=== PATIENT | female | born 1985 | race Two or more races ===

== ENCOUNTER 2024-03-26 15:45 | Emergency (ER) | payer MEDICAID, SELFPAY ==
[2024-03-26 15:48] VITALS: BP 108/73; PULSE 92; RESP 19; TEMP 36.9; O2SAT 100; BMI 27.9
--- NOTE | 2024-03-26 16:07 | PD.EDLOWEX ---
Lower Extremity Injury RME/HPI General Chief Complaint: Hip Injury/Pain Stated Complaint: RIGHT HIP TO KNEE PAIN, UNKNOWN CAUSE Time Seen by Provider: 03/26/24 15:57 Arrival date/time: 03/26/24 15:45 39-year-old female currently presents to the emergency department complaints of right hip pain and buttock pain radiating down her right leg. Patient reports no recent injury patient reports no abdominal pain nausea vomiting or contractions Limitations: no limitations Related Data Previous Rx's ?Medication ?Instructions ?Recorded ibuprofen 600 mg tablet 600 mg PO QID PRN pain #20 tabs 01/21/23 tramadol 50 mg tablet 50 mg PO Q6H PRN pain #14 tabs 01/21/23 hydrocodone 5 mg-acetaminophen 325 1 tab PO BID PRN pain #10 tabs 02/18/24 mg tablet hydrocodone 5 mg-acetaminophen 325 1 tab PO BID PRN pain #6 tabs 03/26/24 mg tablet Allergies Allergy/AdvReac Type Severity Reaction Status Date / Time No Known Allergies Allergy Verified 03/26/24 15:49 Review of Systems Review of Systems Systems Reviewed: All systems reviewed, normal except as documented Constitutional Constitutional: Reports system reviewed and no additional complaints, except as documented, Denies fever(s) and Denies headache(s) Eyes Eyes: Reports system reviewed and no additional complaints, except as documented and Denies blurry vision ENT Ears, Nose, Mouth, and Throat: Reports system reviewed and no additional complaints, except as documented, Denies headache(s), Denies nasal congestion and Denies nasal discharge Cardiovascular Cardiovascular: Reports system reviewed and no additional complaints, except as documented, Denies chest pain and Denies dyspnea Respiratory Respiratory: Reports system reviewed and no additional complaints, except as documented, Denies chest congestion, Denies cough and Denies dyspnea Gastrointestinal Gastrointestinal: Reports system reviewed and no additional complaints, except as documented and Denies abdominal pain Musculoskeletal Musculoskeletal: Reports system reviewed and no additional complaints, except as documented, Reports abnormal gait, Denies back pain, Denies joint swelling and Reports other (Pain right buttock) Integumentary/Breasts Skin/Breast: Reports system reviewed and no additional complaints, except as documented and Denies rash Neurologic Neurologic: Reports system reviewed and no additional complaints, except as documented, Reports as per HPI, Reports abnormal gait and Denies headache(s) Past Medical History Past Medical History NEUROLOGIC: Negative Neurological Disorders or Seizures CARDIAC: Negative Cardiac Disorders or Congestive Heart Failure RESPIRATORY: Negative Chronic Obstructive Pulmonary Disease (COPD) GASTROINTESTINAL: Negative Gastrointestinal Disorders GENITOURINARY: Negative Genitourinary Disorders or Renal Disease REPRODUCTIVE: Positive Previous Pregnancies MUSCULOSKELETAL: Positive Musculoskeletal Disorders ENDOCRINE: Negative Endocrine Disorders, Diabetes Mellitus Type 1 or Diabetes Mellitus Type 2 HEMATOLOGIC: Negative Blood Disorders OTHER HISTORY: Positive Chicken Pox; Negative Hospitalization, Autoimmune Disease, Blood Transfusions, Blood Transfusion Reaction, Anesthesia Reactions or Cancer Family History FAMILY HISTORY: Negative Family Psychiatric Problems, Family Respiratory Disorders, Family Cardiac Disorders, Family Gastrointestinal Problems, Family Cancer, Family Surgery or Family Anesthesia Reaction Social History SMOKING STATUS: Never smoker ED Exam General Limitations: Present no limitations General appearance: Present alert and in no apparent distress Head Head exam: Present atraumatic Eye Eye exam: Present normal appearance, PERRL and EOMI ENT ENT exam: Present normal exam, normal oropharynx and mucous membranes moist Neck Neck exam: Present normal inspection, full ROM and trachea midline Chest Chest inspection: Present normal inspection and symmetric chest wall rise Respiratory Respiratory exam: Present normal lung sounds bilaterally Cardiovascular Cardiovascular exam: Present regular rate, normal rhythm and normal heart sounds Abdominal Exam Abdominal exam: Present soft and normal bowel sounds; Absent distention, tenderness, guarding, rebound or rigidity Extremities Exam Extremities exam: Present normal inspection and full ROM Back Exam Back exam: Present normal inspection, full ROM, sciatic notch tenderness (R) and straight leg raise (R); Absent tenderness Neurological Exam Neurological exam: Present alert, oriented X3 and CN II-XII intact Psychiatric Psychiatric exam: Present normal affect and normal mood Skin Skin exam: Present warm, dry, intact and normal color Course Quality Measures none Orders Category Date Time Status HYDROcodone*/APAP 5/325 [Dickens 5/325] Med 03/26/24 16:04 Discontinued 1 tab PO X1 ONE Vital Signs Vital signs: Vital Signs Temperature 98.5 F 03/26/24 15:48 Pulse Rate 92 03/26/24 15:48 Respiratory Rate 19 03/26/24 15:48 Blood Pressure 108/73 03/26/24 15:48 Pulse Oximetry (%) 100 03/26/24 15:48 Oxygen Delivery Method Room Air 03/26/24 15:48 O2 saturation 100% room air within normal Extremity Injury, Lower MDM Narrative MDM Narrative:: 39-year-old female currently presents to the emergency department complaints of right hip pain and buttock pain radiating down her right leg. Patient reports no recent injury patient reports no abdominal pain nausea vomiting or contractions Patient has point tenderness right sciatic notch worse with movement I suspect patient has sciatica Patient reports he been taking Tylenol at home without success Patient given 1 Dickens here and given a short prescription of Dickens for the pain Explained to the patient she needs to follow-up with her MACHINE FINISHER soon as possible for worsening symptoms return immediately Patient data External records reviewed:: [facility] previous records Clinical information provided by:: patient Social determinants that could affect healthcare access:: none Patient has the following chronic illnesses:: None How is presenting disease/condition affected by chronic disease/condition?: no chronic disease Evaluation data The following diagnostics were reviewed and interpreted by me:: other (specify) (N/A) Lab and/or radiology exams considered but not ordered:: Consider not ordered Interpretation Summary: N/A Medications / Prescriptions Medications or Prescriptions considered but not ordered:: Given Medication administrations:: Medication Administration History Discontinued Medications Hydrocodone Bitart/Acetaminophen (Hydrocodone/Apap 5/325 Tablet) 1 tab PO X1 ONE Stop: 03/26/24 16:05 Last Admin: 03/26/24 16:25 Dose: 1 tab Documented By: ARF Given Consultations Consultation(s) initiated? (list below): No Diagnosis Extremity Injury, Lower Differential Diagnosis: other (Hip pain, buttock pain) Most likely diagnosis given after review of the tests above:: Sciatica Admission Indicated Admission indicated?: not indicated Admission Request Was there a request for admission?: No Disposition Plan Disposition Plan: Discharge Discharge Attestation Discharge Attestation: The patient and all family members were given an opportunity to ask questions and understood the discharge instructions. Discharge instructions specifically effects, indications for sooner follow up or return to the emergency department, and the expected course of current diagnosis. Patient condition: Stable Discharge Plan Plan Patient Disposition: HOME (Self Care) Disposition Comment: Stable Prescriptions/Referrals Prescriptions/Med Rec: New hydrocodone-acetaminophen 5-325 mg tablet 1 tab PO BID MDD 10 PRN (Reason: pain) Qty: 6 0RF No Action tramadol 50 mg tablet 50 mg PO Q6H PRN (Reason: pain) Qty: 14 0RF ibuprofen 600 mg tablet 600 mg PO QID PRN (Reason: pain) Qty: 20 0RF hydrocodone-acetaminophen 5-325 mg tablet 1 tab PO BID MDD 10 PRN (Reason: pain) Qty: 10 0RF Problem List Clinical Impression: Right sided sciatica Patient/Caregiver Discharge Instructions Education Materials: ED Sciatica Additional Instructions: Please follow up with your MACHINE FINISHER in the next 24-48hrs for any worsening symptoms return here immediately Print Language: Indonesian Stand Alone Forms: Cheryl Award Info., Work/School Release, Patient Portal Info Letter PA/LAST MODEL DEPARTMENT SUPERVISOR Supervising Physician PA/LAST MODEL DEPARTMENT SUPERVISOR Supervising Physician: Dr Stanley
[2024-03-26] MEDS: HYDROcodone/APAP 5/325 TABLET 1 TAB PO (16:25)
== END 2024-03-26 16:25 | disposition home or self-care (01) ==
LOC: SERX 16:25
PROVIDERS: Emergency Provider Emergency Medicine; PCP Nurse Practitioner Women's Health
DX: O99.891 Other specified diseases and conditions complicating pregnancy (principal); M54.31 Sciatica, right side
CPT/HCPCS: 99283; A9270

== ENCOUNTER 2024-04-23 10:37 | Outpatient (RCR) | payer MEDICAID, SELFPAY ==
--- NOTE | 2024-03-12 10:35 | XR_ITS ---
Examination: Biophysical profile, ultrasound Date and time of exam: March 12, 2024 1039 hours INDICATIONS: Advanced maternal age Technique: Multiple transabdominal sonographic images of the pelvis abdomen obtained. Attention is directed to the breathing movement, gross body movement, amniotic fluid volume and tone. Findings: Amniotic fluid index 13.8 cm Total biophysical profile is 8 of 8. breathing movement is 2. Gross body movement is 2. tone is 2. Qualitative amniotic fluid volume is 2 Impression: Biophysical profile is 8 of 8.
[2024-03-12 11:39] VITALS: BP 116/75; PULSE 78; RESP 16; TEMP 36.8
--- NOTE | 2024-03-19 10:17 | XR_ITS ---
Examination: Biophysical profile, ultrasound Date and time of exam: March 18, 2024 1034 hrs. Indications: Advanced maternal age, shingles Technique: Multiple transabdominal sonographic images of the pelvis abdomen obtained. Attention is directed to the breathing movement, gross body movement, amniotic fluid volume and tone. Findings: Amniotic fluid index 11 cm Total biophysical profile is 8 of 8. breathing movement is 2. Gross body movement is 2. tone is 2. Qualitative amniotic fluid volume is 2 Impression: Biophysical profile is 8 of 8.
[2024-03-19 11:22] VITALS: BP 127/72; PULSE 80; RESP 16; TEMP 36.6
--- NOTE | 2024-03-26 10:11 | XR_ITS ---
Examination: Biophysical profile, ultrasound Date and time of exam: March 26, 2024 1050 hours INDICATIONS: Advanced maternal age, history shingles Technique: Multiple transabdominal sonographic images of the pelvis abdomen obtained. Attention is directed to the breathing movement, gross body movement, amniotic fluid volume and tone. Findings: Amniotic fluid index 12.3 cm Total biophysical profile is 8 of 8. breathing movement is 2. Gross body movement is 2. tone is 2. Qualitative amniotic fluid volume is 2 Impression: Biophysical profile is 8 of 8.
[2024-03-26 11:07] VITALS: BP 109/74; PULSE 103; RESP 16; TEMP 36.4
--- NOTE | 2024-04-02 10:31 | XR_ITS ---
Examination: Biophysical profile, ultrasound Date and time of exam: April 02, 2024 1047 hours INDICATIONS: Advanced maternal age Technique: Multiple transabdominal sonographic images of the pelvis abdomen obtained. Attention is directed to the breathing movement, gross body movement, amniotic fluid volume and tone. Findings: Amniotic fluid index 10 cm Total biophysical profile is 8 of 8. breathing movement is 2. Gross body movement is 2. tone is 2. Qualitative amniotic fluid volume is 2 Impression: Biophysical profile is 8 of 8.
[2024-04-02 11:00] VITALS: BP 101/61; PULSE 82; RESP 16; TEMP 36.7
--- NOTE | 2024-04-09 10:55 | XR_ITS ---
Examination: Biophysical profile, ultrasound Date and time of exam: April 09, 2024 1119 hours INDICATIONS: Diagnosis advanced maternal age, shingles Technique: Multiple transabdominal sonographic images of the pelvis abdomen obtained. Attention is directed to the breathing movement, gross body movement, amniotic fluid volume and tone. Findings: Amniotic fluid index 12.1 cm Total biophysical profile is 8 of 8. breathing movement is 2. Gross body movement is 2. tone is 2. Qualitative amniotic fluid volume is 2 Impression: Biophysical profile is 8 of 8.
[2024-04-09 11:49] VITALS: BP 125/82; PULSE 79; RESP 16; TEMP 36.4
--- NOTE | 2024-04-16 11:46 | XR_ITS ---
Examination: Biophysical profile, ultrasound Date and time of exam: April 16, 2024 1151 hours INDICATIONS: Advanced maternal age, maternal shingles Technique: Multiple transabdominal sonographic images of the pelvis abdomen obtained. Attention is directed to the breathing movement, gross body movement, amniotic fluid volume and tone. Findings: Amniotic fluid index 13.6 cm Total biophysical profile is 8 of 8. breathing movement is 2. Gross body movement is 2. tone is 2. Qualitative amniotic fluid volume is 2 Impression: Biophysical profile is 8 of 8.
[2024-04-16 12:27] VITALS: BP 125/75; PULSE 76; RESP 18; TEMP 36.8
--- NOTE | 2024-04-23 10:50 | XR_ITS ---
Examination: Biophysical profile, ultrasound Date and time of exam: April 23, 2024 1103 hours INDICATIONS: Diagnosis advanced maternal age Technique: Multiple transabdominal sonographic images of the pelvis abdomen obtained. Attention is directed to the breathing movement, gross body movement, amniotic fluid volume and tone. Findings: Amniotic fluid index 12.3 cm Total biophysical profile is 8 of 8. breathing movement is 2. Gross body movement is 2. tone is 2. Qualitative amniotic fluid volume is 2 Impression: Biophysical profile is 8 of 8.
[2024-04-23 11:27] VITALS: BP 113/70; PULSE 82; RESP 16; TEMP 36.7
== END 2024-04-23 23:59 | disposition home or self-care (01) ==
LOC: S4S1 10:37
PROVIDERS: Referring Provider Nurse Practitioner Women's Health; Visit Provider Nurse Practitioner Women's Health
DX: O98.513 Other viral diseases complicating pregnancy, third trimester (principal); B02.9 Zoster without complications; O09.523 Supervision of elderly multigravida, third trimester; Z3A.38 38 weeks gestation of pregnancy
CPT/HCPCS: 59025; 76819

== ENCOUNTER 2024-04-28 07:37 | Inpatient (IN) | payer MEDICAID, SELFPAY ==
[2024-04-28] VITALS (18 sets, daily range): BP systolic 88–148; BP diastolic 50–93; PULSE 76–98; RESP 15–20; TEMP 36.5–37.1; O2SAT 96–100; BMI 30.5
--- NOTE | 2024-04-28 08:04 | PD.LDHP ---
Documentation for date of: 04/28/24 OB Labor/Induct. HPI History of Present Illness : 8 Para: 6 Term pregnancies: 6 pregnancies: 0 Living children: 6 History of Abortions: Spontaneous and Elective: 1 HONORIO: 05/06/24 Gestational Age (weeks): 38 Gestational Age (days): 6 History of present illness: 39-year-old -0-1-6 at 38 weeks 6 days, HONORIO 05/06/2024 presents to labor and delivery triage with contractions. On presentation she was noted to be grossly ruptured with fetus in the breech position. presentation was confirmed through bedside ultrasound by myself. Patient denies any chest pain or leakage of fluid or any other associated complaints. Review of Systems Review of Systems Systems Reviewed: All systems reviewed, normal except as documented Meds Home Medications and Allergies Home Medications ?Medication ?Instructions ?Recorded ?Confirmed ?Type vitamin-ferrous sulfate 1 tab PO QDAY 04/28/24 04/28/24 History 27 mg iron-folic acid 0.8 mg tablet Allergies Allergy/AdvReac Type Severity Reaction Status Date / Time No Known Allergies Allergy Verified 04/28/24 07:40 OB Exam Physical Exam Vital signs: Pulse BP 76 146/83 H 04/28/24 07:46 04/28/24 07:46 Constitutional Constitutional: no acute distress Routine HEENT Exam Head: Present normocephalic and atraumatic Eye: Present EOMI and PERRL ENT: Present mucous membranes moist Routine Neck Exam Neck: Present supple and trachea midline Routine Cardiovascular Exam Cardiovascular: Present RRR Routine Abdominal Exam Abdominal: Present soft and normoactive bowel sounds Detailed Labor and Delivery Exam Dilation (cm): 3 Effacement (%): 50 Cervix position: mid station: -3 Baseline heart rate: 140 monitor accelerations: 15x15 monitor decelerations: None Routine Extremities Exam Extremities: Present full ROM Routine Skin Exam Skin: Present intact, dry and warm Routine Neurological Exam Neurological: Present alert, oriented X3 and CN II-XII intact Routine Psychiatric Exam Psychiatric: Present normal affect and normal thought process OB Assessment & Plan Assessment and Plan (1) Active labor at term: Status: Acute (2) Breech presentation of fetus: Status: Acute Assessment and plan: Admit to inpatient status for primary low transverse and BTL IV access, CBC, type and screen, LR at 125, RPR, COVID-19 test GBS negative Ancef 2 g prior to surgery start Bay catheter to drainage SCDs for DVT prophylaxis Anesthesia to preop for spinal anesthesia Scheduled for surgery.
[2024-04-28] MEDS: FAMOTIDINE INJ 10 MG/ML VIAL 2 ML 20 MG IV (08:21)
[2024-04-28] MEDS: METOCLOPRAMIDE INJ 5 MG/ML VIAL 2 ML 10 MG IVP (08:21)
[2024-04-28] MEDS: ceFAZolin/D5W 2 GM IV 2 GM/100 ML BAG IV (08:21)
[2024-04-28 08:25] LABS: Basophils % (Auto) 1 % (0-2.5); Eosinophils # (Auto) 0.1 Thou/mm3 (0.0-0.5); Eosinophils % (Auto) 1 % (0-10); Hematocrit 36.7 % (36.0-46.0); Hemoglobin 11.7 g/dL (12.0-16.0); Immature Granulocytes % (Auto) 1 % (0-0); Immature Granulocytes Auto 0.08 Thou/mm3 (0.00-0.00); Lymphocytes # (Auto) 1.4 Thou/mm3 (1.0-4.8); Lymphocytes % (Auto) 16 % (10-50); Mean Corpuscular HGB Conc 31.9 g/dl (31.0-37.0); Mean Corpuscular Hemoglobin 26.4 pg (25.0-35.0); Mean Corpuscular Volume 83 fL (80-100); Monocytes # (Auto) 0.7 Thou/mm3 (0.0-0.8); Monocytes % (Auto) 8 % (0-12); Neutrophils # (Auto) 6.5 Thou/mm3 (1.8-7.7); Neutrophils % (Auto) 74 % (37-80); Nucleated Red Blood Cell # 0.03 Thou/mm3 (0.00-0.00); Nucleated Red Blood Cell % 0 /100 WBC (0); Platelet Count 243 Thou/mm3 (140-440); RDW Standard Deviation 44.9 fL (36.4-46.3); Red Blood Count 4.43 Miln/mm3 (4.00-5.20); White Blood Count 8.8 Thou/mm3 (3.6-11.0)
[2024-04-28] MEDS: TERBUTALINE SULF INJ 1 MG/ML VIAL 0.25 MG SC (08:25)
--- NOTE | 2024-04-28 08:50 | PC.NURSE ---
04/28/2024 @ 0838 HIVES NOTED ON PATIENTS FACE WITH RICK DESAI AND DINING ROOM HOSTRICK ADAM. PATIENT DENIES ALLERGIES TO MEDICATIONS AND ANTIBIOTICS. PATIENT DENIES SYMPTOMS. DR. BARKER NOTIFIED IN OR BY RICK DESAI. PER Toya POSSIBLE TERBUTALINE ALLERGY. PER RICK DESAI HIVES DISAPPEARED DURING SPINAL PROCEDURE BEFORE C/S.
--- NOTE | 2024-04-28 09:27 | ESOP_ITS ---
Operative Note - [employer] Procedure Date of procedure: 04/28/24 Procedure Performed: Primary low-transverse section Indication: 39-year-old G8, P6 at 38 weeks 6 days with ruptured membranes in active labor Breech presentation of fetus Anesthesia type: Spinal Procedure description: Informed consent was obtained and the patient was taken to the operating room. Identity was confirmed by double identifiers and she was placed on the operating table. Spinal anesthesia was administered and she was positioned in the supine position. The abdomen and perineum were prepped in the usual sterile fashion and a Bay catheter was placed to continuous drainage. Sterile drapes were applied. The incision site was tested for adequacy of anesthesia. A Pfannenstiel skin incision was made with a scalpel and carried to the subcutaneous fat up to the rectus fascia. The rectus fascia was incised on either side of the midline and the incisions were extended bilaterally. The fascia was gently dissected off the ventral surface of the rectus muscle both superiorly and inferiorly. The rectus bellies were gently in the midline and the peritoneum was identified and entered bluntly using the surgeon's finger. The peritoneal opening was now stretched to create an adequate opening for access to the uterus. Efrain O-ring retractor was placed for adequate visualization. The anterior surface of the uterus was palpated. The bladder reflection was identified and a Yanira Mays low transverse uterine incision was made in the lower uterine segment taking care to avoid the bladder. Uterine entry was accomplished bluntly and the opening was stretched to create adequate room. Membranes were already noted to be ruptured, the fetus was in double footling br eech presentation. Breech delivery was accomplished in the usual fashion. A double loop of nuchal cord was noted around the neck and reduced. The umbilical cord was now double clamped, divided and the infant was handed over to the waiting team. Cord gas samples were obtained and the placenta was delivered. The placenta was delivered by gentle traction on the umbilical cord. The interior of the uterus was now thoroughly cleaned of all blood and debris and membranes. The hysterotomy angles were grasped by a pair of Allis clamps and the hysterotomy was closed using 1 Monocryl suture in 2 layers. The first layer was used to approximate the muscle in a running locked fashion, the second layer was used to approximate the thickness of the myometrium and uterine serosa in an imbricated manner. Once the repair was completed the hysterotomy was inspected and noted to be adequately hemostatic. The hysterotomy was once again inspected and hemostasis was noted to be satisfa ctory. The Efrain retractor was now removed. The peritoneal edges were re approximated. The rectus muscles were re approximated. The rectus fascia was now repaired using 0 Vicryl suture in a running fashion. The subcutaneous layer was now copiously irrigated using warm normal saline. All bleeding points were cauterized using the Bovie. The subcutaneous fat was closed using 3-0 Vicryl. The skin was closed using 4-0 Monocryl in a subcuticular fashion. The skin was cleaned and a sterile dressing was applied. The patient was now undraped, the abdomen and back were thoroughly cleaned and she was not transferred to the recovery room in a stable and awake condition. The patient tolerated the entire procedure well. No complications were encountered. All instrument, sponge and lap counts were correct x2. Estimated blood loss (ml): 650 Complications: none Surgical staff Operation Date: 04/28/24 08:15 <No data on this case meets the specified criteria> Diagnosis Discharge Diagnosis (1) Breech presentation of fetus: Status: Acute (2) Active labor at term: Status: Acute (3) delivery delivered: Status: Acute Problem List Completed Was Problem List Reviewed/Reconciled?: Yes
--- NOTE | 2024-04-28 09:30 | OBDSUM_ITS ---
Data (Caceres) Data : 8 Para: 6 Term: 6 : 0 : 1 Delivery Data (Caceres) Labor Data ROM Date: 04/28/24 ROM Time: 05:30 Rupture Type: SROM Amniotic Fluid: Clear Delivery Data Labor Onset Stage 1 Date: 04/28/24 Labor Onset Stage 1 Time: 05:30 Labor Onset Stage 2 Date: 04/28/24 Labor Onset Stage 2 Time: 09:04 Delivery Date: 04/28/24 Delivery Time: 09:04 Placenta Delivery Date: 04/28/24 Placenta Delivery Time: 09:04 Delivered by: Luke Hernández Delivery nurse: Cindy Hawk Other staff at delivery: Secondary School Teacher Librarian Other staff at delivery: Nursery Nurse Other staff at delivery: Scrub Other staff at delivery: RT Other staff at delivery: Ramona Hayward Other staff at delivery: Jody Vega Delivery Method Delivery: Delivery Type: Primary Anesthesia Type Primary Anesthesia: Spinal Umbilical Cord Nuchal Cord: x2 [place] Data (Caceres) Data Gender: Female Weight Grams: 3240 1 Minute Total: 7 5 Minute Total: 9
[2024-04-28] MEDS: OXYTOCIN in NS 20 units 20 UNIT/1,000 ML BAG 125 UNIT IV ×2 (10:17→15:33)
[2024-04-28 10:37] LABS: Syphilis Nonreactive (Nonreactive)
[2024-04-28] MEDS: KETOROLAC INJ 30 MG/ML VIAL IVP ×2 (13:27→22:03)
[2024-04-28] MEDS: RINGERS LACTATED 1000 ML 1,000 ML 125 ML IV (23:47)
[2024-04-29] MEDS: HYDROcodone/APAP 5/325 TABLET 2 TAB PO (04:24)
[2024-04-29 04:50] VITALS: BP 137/78; PULSE 92; RESP 18; TEMP 37; O2SAT 97
[2024-04-29 06:27] LABS: Basophils % (Auto) 0 % (0-2.5); Eosinophils # (Auto) 0.1 Thou/mm3 (0.0-0.5); Eosinophils % (Auto) 1 % (0-10); Hematocrit 25.7 % (36.0-46.0); Immature Granulocytes % (Auto) 1 % (0-0); Immature Granulocytes Auto 0.07 Thou/mm3 (0.00-0.00); Lymphocytes % (Auto) 10 % (10-50); Mean Corpuscular HGB Conc 31.1 g/dl (31.0-37.0); Mean Corpuscular Hemoglobin 26.1 pg (25.0-35.0); Mean Corpuscular Volume 84 fL (80-100); Monocytes # (Auto) 0.8 Thou/mm3 (0.0-0.8); Monocytes % (Auto) 7 % (0-12); Neutrophils # (Auto) 8.7 Thou/mm3 (1.8-7.7); Neutrophils % (Auto) 82 % (37-80); Nucleated Red Blood Cell # 0.02 Thou/mm3 (0.00-0.00); Nucleated Red Blood Cell % 0 /100 WBC (0); Platelet Count 197 Thou/mm3 (140-440); RDW Standard Deviation 45.5 fL (36.4-46.3); Red Blood Count 3.07 Miln/mm3 (4.00-5.20); White Blood Count 10.6 Thou/mm3 (3.6-11.0)
[2024-04-29 08:18] VITALS: BP 127/79; PULSE 93; RESP 18; TEMP 37.1; O2SAT 98
[2024-04-29] MEDS: IBUPROFEN TAB 400 MG TABLET 800 MG PO ×2 (08:35→16:18)
[2024-04-29] MEDS: DOCUSATE SOD 100 MG CAPSULE PO (08:35)
--- NOTE | 2024-04-29 09:21 | ESPR_ITS ---
Subjective Subjective Interval history: Delivery type: Patient doing well this morning. No acute complaints. Ambulating, tolerating p.o. and voiding without difficulty. HTN/Pre-Eclampsia screen: No chest pain, shortness of breath, headache, visual changes, epigastric or right upper quadrant pain. Breast-feeding, lochia diminishing. Bowel: Flatus+ Exam Vital Signs Temp Pulse Resp BP Pulse Ox O2 Del Method 98.7 F 93 18 127/79 98 Room Air 04/29/24 08:18 04/29/24 08:18 04/29/24 08:18 04/29/24 08:18 04/29/24 08:18 04/29/24 08:18 Constitutional Constitutional: no acute distress Routine HEENT Exam Head: Present normocephalic and atraumatic Eye: Present EOMI and PERRL ENT: Present mucous membranes moist Routine Neck Exam Neck: Present supple and trachea midline Routine Respiratory Exam Respiratory: Present chest non-tender, lungs clear, normal breath sounds and no resp distress Routine Cardiovascular Exam Cardiovascular: Present RRR Routine Abdominal Exam Abdominal: Present soft and normoactive bowel sounds Routine Extremities Exam Extremities: Present full ROM Routine Skin Exam Skin: Present intact, dry and warm Routine Neurological Exam Neurological: Present alert, oriented X3 and CN II-XII intact Routine Psychiatric Exam Psychiatric: Present normal affect and normal thought process Objective Labs 04/29/24 04:55 Labs: Laboratory Results - last 24 hr 04/28/24 04/29/24 08:10 04:55 WBC 10.6 RBC 3.07 L Hgb 8.0 L D Hct 25.7 L D MCV 84 MCH 26.1 MCHC 31.1 RDW Std Deviation 45.5 Plt Count 197 D Neut % (Auto) 82 H Lymph % (Auto) 10 [place] % (Auto) 7 Eos % (Auto) 1 Baso % (Auto) 0 Neut # (Auto) 8.7 H Lymph # (Auto) 1.0 [place] # (Auto) 0.8 Eos # (Auto) 0.1 Baso # (Auto) 0.0 Immature Gran # (Auto) 0.07 H Absolute Nucleated RBC 0.02 H Immature Gran % 1 H Nucleated RBC % 0 Syphilis Serology Nonreactive Blood Type O Positive Antibody Screen NEGATIVE Crossmatch See Detail Blood Bank Wristband ID Yes Assessment & Plan Problem List (1) Breech presentation of fetus: Status: Acute (2) Active labor at term: Status: Acute (3) delivery delivered: Status: Acute Assessment and plan: 1. Continue routine /post-op care 2. Labs reviewed, cbc appropriate 3. Remove dressing/Bay 4. Encourage to ambulate, shower 5. Encourage PO intake, breast feeding Time Spent With Patient Time: Total time spent is greater than 50% in coordination of care (as documented) at patient's floor/unit and/or counseling patient:
[2024-04-29 12:33] LABS: Basophils % (Auto) 0 % (0-2.5); Eosinophils # (Auto) 0.1 Thou/mm3 (0.0-0.5); Eosinophils % (Auto) 1 % (0-10); Immature Granulocytes % (Auto) 1 % (0-0); Immature Granulocytes Auto 0.05 Thou/mm3 (0.00-0.00); Lymphocytes # (Auto) 1.1 Thou/mm3 (1.0-4.8); Lymphocytes % (Auto) 10 % (10-50); Mean Corpuscular HGB Conc 32.4 g/dl (31.0-37.0); Mean Corpuscular Hemoglobin 26.8 pg (25.0-35.0); Mean Corpuscular Volume 83 fL (80-100); Monocytes # (Auto) 0.7 Thou/mm3 (0.0-0.8); Monocytes % (Auto) 7 % (0-12); Neutrophils # (Auto) 8.4 Thou/mm3 (1.8-7.7); Neutrophils % (Auto) 82 % (37-80); Nucleated Red Blood Cell # 0.02 Thou/mm3 (0.00-0.00); Nucleated Red Blood Cell % 0 /100 WBC (0); Platelet Count 223 Thou/mm3 (140-440); Red Blood Count 3.02 Miln/mm3 (4.00-5.20); White Blood Count 10.3 Thou/mm3 (3.6-11.0)
[2024-04-29 12:43] LABS: Hemoglobin 8.1 g/dL (12.0-16.0)
[2024-04-29 16:18] VITALS: TEMP 36.9
[2024-04-29] MEDS: HYDROcodone/APAP 5/325 TABLET 1 TAB PO (16:21)
[2024-04-29 16:22] VITALS: BP 139/87; PULSE 92; RESP 18; TEMP 36.9; O2SAT 99
[2024-04-29 19:57] VITALS: BP 132/83; PULSE 84; RESP 18; TEMP 36.9; O2SAT 97
[2024-04-30 05:28] VITALS: BP 117/76; PULSE 86; RESP 15; TEMP 37.1; O2SAT 96
--- NOTE | 2024-04-30 06:14 | PD.LDPPPRG ---
Subjective Subjective Interval history: Delivery type: Patient doing well this morning. No acute complaints. Ambulating, tolerating p.o. and voiding without difficulty. HTN/Pre-Eclampsia screen: No chest pain, shortness of breath, headache, visual changes, epigastric or right upper quadrant pain. Breast-feeding, lochia diminishing. Bowel: Flatus+/ BM+ Exam Vital Signs Temp Pulse Resp BP Pulse Ox O2 Del Method 98.4 F 84 18 132/83 H 97 Room Air 04/29/24 19:57 04/29/24 19:57 04/29/24 19:57 04/29/24 19:57 04/29/24 19:57 04/29/24 19:57 Constitutional Constitutional: no acute distress Routine HEENT Exam Head: Present normocephalic and atraumatic Eye: Present EOMI and PERRL ENT: Present mucous membranes moist Routine Neck Exam Neck: Present supple and trachea midline Routine Respiratory Exam Respiratory: Present chest non-tender, lungs clear, normal breath sounds and no resp distress Routine Cardiovascular Exam Cardiovascular: Present RRR Routine Abdominal Exam Abdominal: Present soft and normoactive bowel sounds Routine Extremities Exam Extremities: Present full ROM Routine Skin Exam Skin: Present intact, dry and warm Routine Neurological Exam Neurological: Present alert, oriented X3 and CN II-XII intact Routine Psychiatric Exam Psychiatric: Present normal affect and normal thought process Objective Labs 04/29/24 11:32 Labs: Laboratory Results - last 24 hr 04/29/24 04/29/24 04:55 11:32 WBC 10.6 10.3 RBC 3.07 L 3.02 L Hgb 8.0 L D 8.1 L Hct 25.7 L D 25.0 L MCV 84 83 MCH 26.1 26.8 MCHC 31.1 32.4 RDW Std Deviation 45.5 45.0 Plt Count 197 D 223 Neut % (Auto) 82 H 82 H Lymph % (Auto) 10 10 Moffat % (Auto) 7 7 Eos % (Auto) 1 1 Baso % (Auto) 0 0 Neut # (Auto) 8.7 H 8.4 H Lymph # (Auto) 1.0 1.1 Moffat # (Auto) 0.8 0.7 Eos # (Auto) 0.1 0.1 Baso # (Auto) 0.0 0.0 Immature Gran # (Auto) 0.07 H 0.05 H Absolute Nucleated RBC 0.02 H 0.02 H Immature Gran % 1 H 1 H Nucleated RBC % 0 0 Assessment & Plan Problem List (1) Breech presentation of fetus: Status: Acute (2) Active labor at term: Status: Acute (3) delivery delivered: Status: Acute Assessment and plan: PPD/POD#2 1. Continue routine care 2. Transition to PO meds. 3. Encourage to ambulate/ breast-feed 4. Anticipate discharge home today. Time Spent With Patient Time: Total time spent is greater than 50% in coordination of care (as documented) at patient's floor/unit and/or counseling patient:
--- NOTE | 2024-04-30 06:14 | PD.LDDS ---
DS: Providers Provider Date of admission: 04/28/24 07:57 Primary care physician: Physician No Primary/Family Admitting Provider: Eunice Thakkar CNM Attending Provider on Admission: Luke Hernández MD Consults: 04/28/24 09:54 Referral Routine Comment: Attending Provider on DC: Luke Hernández MD Discharging Provider: Luke Hernández MD DS: Diagnosis Discharge Diagnosis (1) delivery delivered: Status: Acute (2) Breech presentation of fetus: Status: Acute Problem List Completed Was Problem List Reviewed/Reconciled?: Yes Summary/Hosp Course Brief History: 39-year-old -0-1-6 at 38 weeks 6 days, [place] 05/06/2024 presents to labor and delivery triage with contractions. On presentation she was noted to be grossly ruptured with fetus in the breech position. presentation was confirmed through bedside ultrasound by myself. Patient denies any chest pain or leakage of fluid or any other associated complaints. Peripartum Data Procedures: Procedures Operation Date: 04/28/24 08:15 Actual Procedure Side Surgeon p w/tubal OB Luke Hernández MD Time Spent with Patient Time attestation: Total time spent providing and/or coordinating discharge services: Exam Vital Signs Temp Pulse Resp BP Pulse Ox O2 Del Method 98.4 F 84 18 132/83 H 97 Room Air 04/29/24 19:57 04/29/24 19:57 04/29/24 19:57 04/29/24 19:57 04/29/24 19:57 04/29/24 19:57 Discharge Plan Plan Patient Disposition: HOME (Self Care) Patient condition on transfer: Stable Prescriptions/Referrals Prescriptions/Med Rec: New hydrocodone-acetaminophen 5-325 mg Tablet 1 tab PO Q6HR MDD 4 PRN (Reason: Patient rated pain 9 to 10) 5 Days Qty: 20 0RF docusate sodium 100 mg Capsule 100 mg PO QDAY 30 Days Qty: 30 0RF ibuprofen 400 mg Tablet 800 mg PO Q8HR PRN (Reason: Pain Scale 4-6 (Moderate) 10 Days Qty: 30 0RF Discontinued 27 mg iron- 0.8 mg Tablet 1 tab PO QDAY Referrals: Luke Hernández MD [Physician] - No Primary/Family,Physician [Primary Care Provider] - Patient/Caregiver Discharge Instructions Meds to Beds: Yes Discharge Activity: activity as tolerated Education Materials: After Delivery [place] Concerns, After a , : Caring for Yourself, C Section Dc Print Language: Turkmen Stand Alone Forms: Cheryl Award Info., Patient Portal Info Letter, DC from Surgery Planned Discharge Date 04/30/24
[2024-04-30 07:10] VITALS: BP 136/86; PULSE 89; RESP 16; TEMP 36.6; O2SAT 98
[2024-04-30] MEDS: HYDROcodone/APAP 5/325 TABLET 1 TAB PO (07:47)
[2024-04-30] MEDS: DOCUSATE SOD 100 MG CAPSULE PO (07:47)
[2024-04-30] MEDS: MEASLES, MUMPS & RUBELLA VACC 0.5 ML VIAL SCi (09:46)
[2024-04-30] MEDS: IBUPROFEN TAB 400 MG TABLET 800 MG PO ×2 (09:52)
[2024-04-30 10:00] VITALS: BP 128/83; PULSE 97
[2024-04-30 11:30] VITALS: BP 134/79; PULSE 97; RESP 16; TEMP 36.9; O2SAT 96
[2024-04-30] MEDS: HYDROcodone/APAP 5/325 TABLET 2 TAB PO (13:52)
--- NOTE | 2024-04-30 14:34 | PC.NURSE ---
[id number] DR BARKER MADE AWARE OF PATIENTS C/O HEADACHE THAT IS IMPROVING AFTER MEDICATION AND CURRENT BLOOD PRESSURES NO NEW ORDERS RECEIVED PT OK TO BE DISCHARGED
== END 2024-04-30 15:35 | disposition home or self-care (01) | DRG 540 ==
LOC: S4SX 08:12 → S4NX 08:58
PROVIDERS: Admitting Provider Nurse Practitioner Women's Health; Visit Provider Obstetrics & Gynecology
PROC: 0UL70ZZ Occlusion of Bilateral Fallopian Tubes, Open Approach (ICD-10-PCS; CPT 59514; principal; 2024-04-28 08:00)
DX: O42.02 Full-term premature rupture of membranes, onset of labor within 24 hours of rupture (principal); O32.8XX0 Maternal care for other malpresentation of fetus, not applicable or unspecified; O69.81X0 Labor and delivery complicated by cord around neck, without compression, not applicable or unspecified; Z37.0 Single live birth; Z3A.38 38 weeks gestation of pregnancy; Z23 Encounter for immunization
CPT/HCPCS: 36415; 59025; 84112; 85025; 86780; 86850; 86900; 86901; 86923; 90707; A4649; J0689; J1885; J2274; J2371; J2590; J2765; J3010; J3105; J3490; J7120; A9270; J0690; J2270